=== PATIENT | male | born 1985 | race Caucasian/White ===

== ENCOUNTER 2020-09-30 15:11 | Emergency (ER) | payer OTHER, SELFPAY ==
[2020-09-30 15:15] VITALS: BP 162/84; PULSE 76; RESP 14; TEMP 36.9; O2SAT 97; BMI 29.5
--- NOTE | 2020-09-30 15:43 | ED_ITS ---
HPI - General Adult General Chief complaint: Seizure Stated complaint: seizure today, about approx 14:00 Time Seen by Provider: 09/30/20 15:20 Source: patient and family Mode of arrival: Ambulatory Limitations: no limitations History of Present Illness HPI narrative: Patient is a 35-year-old male here for evaluation of a seizure. He reports that he has had 1 seizure in the past and this was approximately 1 year ago. He was started on anti seizure medications immediately afterwards to the circumstances were he was in an isolated environment in [place]. He did follow-up with Neurology since then and had an MRI. He was told everything was fine and he has not taken any the seizure medicine since then. Has not had any issues until today when he was sitting in his car. He bent over to get something out of the glove box and the next thing that he remembers was on the ground. Unsure how long the seizure exactly lasted but it was less than 5 minutes. He did bite his tongue. There was no loss of bowel or bladder. The time of my evaluation see was generally sore but otherwise no other complaints. Related Data Allergies Allergy/AdvReac Type Severity Reaction Status Date / Time No Known Drug Allergies Allergy Verified 09/30/20 15:22 Review of Systems Constitutional Constitutional: Denies fever(s) and Denies headache(s) ENT Ears, Nose, Mouth, and Throat: Denies headache(s) Cardiovascular Cardiovascular: Reports system reviewed and no additional complaints, except as documented Respiratory Respiratory: Reports system reviewed and no additional complaints, except as documented Gastrointestinal Gastrointestinal: Reports system reviewed and no additional complaints, except as documented Musculoskeletal Musculoskeletal: Reports system reviewed and no additional complaints, except as documented Neurologic Neurologic: Denies headache(s) Psychiatric Psychiatric: Denies anxiety Hematologic/Lymphatic On Anticoagulants: No Patient History Medical History Seizure tobacco type: smokeless tobacco alcohol intake frequency: 3 or more drinks per day Substance Use Type: does not use Exam Initial Vital Signs Initial Vital Signs: Vital Signs Temperature 98.5 F 09/30/20 15:15 Pulse Rate 76 09/30/20 15:15 Respiratory Rate 14 09/30/20 15:15 Blood Pressure 162/84 H 09/30/20 15:15 Pulse Oximetry 97 09/30/20 15:15 Const General: cooperative and comfortable Limitations: mental status not altered HENMT Head: normal to inspection and normocephalic Eyes General: appearance normal, both eyes and all related structures Resp Effort & Inspection: normal respiratory effort Cardio Rate: regular rate Skin Lesions: no lesions Rashes: no rashes Neuro General: patient alert, patient awake and patient oriented x3 Cognition: normal cognition Speech: speech normal Extrem General: normal to inspection and capillary refill normal Psych Appearance: grossly normal and well kempt Scores GCS Sarah coma scale eye opening: Spontaneous [place] coma scale verbal response: Orientated [place] coma scale motor response: Obey commands [place] coma scale total score: 15 Course Orders Ordered: ED Orders 09/30/20 15:30 Basic Metabolic Panel Stat Complete Blood Count AUTO DIFF Stat Ethanol (ETOH) Stat Prolactin Stat 09/30/20 15:44 CT head/brain wo con Stat Vital Signs Vital signs: Vital Signs - 8 hr 09/30/20 15:15 Temperature 98.5 F Pulse Rate 76 Respiratory Rate 14 Blood Pressure 162/84 H Pulse Oximetry 97 Medical Decision Making Lab Data Lab results reviewed: Yes I reviewed the patient's lab results. Result diagrams: 09/30/20 15:30 09/30/20 15:30 Labs: Lab Results 09/30/20 09/30/20 Range/Units 15:30 15:30 WBC 6.8 (4.5-11.0) X10^3/uL RBC 4.44 L (4.5-5.9) X10^6/uL Hgb 15.2 (13.5-17.5) g/dL Hct 44.1 (41-53) % MCV 99.5 (80-100) fL MCH 34.2 H (26-34) PG MCHC 34.4 (30-36) % RDW 12.7 (11.6-14.8) % Plt Count 158 (150-400) X10^3/uL Neut % (Auto) 85.6 H (50-75) % Lymph % (Auto) 5.4 L (25-40) % Perkins % (Auto) 8.4 (3-14) % Eos % (Auto) 0.2 L (2-4) % Baso % (Auto) 0.4 (0-2) % Neut # (Auto) 5800 (6327-6716) /uL Lymph # (Auto) 400 L (1173-5243) /uL Perkins # (Auto) 600 (0-900) /uL Eos # (Auto) 0 (0-450) /uL Baso # (Auto) 0 (0-100) /uL Sodium 137 (137-145) mmol/L Potassium 4.1 (3.4-5.1) mmol/L Chloride 98 (98-107) mmol/L Carbon Dioxide 28 (22-32) mmol/L BUN 13 (9-20) mg/dL Creatinine 0.95 (0.66-1.25) mg/dL Estimated GFR > 60.0 (>60) mL/min BUN/Creatinine Ratio 13.7 (6-22) Glucose 125 H (70-100) mg/dL Calcium 10.8 H (8.4-10.2) mg/dL Prolactin 20.2 H (3.7-17.9) ng/mL Ethyl Alcohol < 10 ( - 10) mg/dL Imaging Data CT scan - head: Radiologist's Impression: [address] [id number] Scan ReportSigned Patient: Lalo Hanson [facility]#: [id number]: 1985Acct:[id number]/Sex: 35 / MDate of Service: 09/30/20Loc: EDAccession Number: [id number] Procedure: CT head/brain wo con Ordering Provider: Kody Bejarano D.O. PROCEDURE: CT HEAD/BRAIN WO CON INDICATIONS: 2nd seizure today TECHNIQUE: Noncontrast 4.5 mm thick angled axial sections acquired from the foramen magnum to the vertex, with coronal and sagittal reformats. For radiation dose reduction, the following was used: automated exposure control, adjustment of mA and/or kV according to patient size. COMPARISON: None. FINDINGS: Image quality: Excellent. CSF spaces: Basal cisterns are patent. No extra-axial fluid collections. Ventricles are normal in size and shape. Brain: No midline shift. No intracranial masses or hemorrhage. Kaiser-white matter interface is normal. Skull and face: Calvarium and visualized facial bones are intact, without suspicious lesions. Sinuses: Visualized sinuses and mastoids are clear. IMPRESSION: CT head without acute intracranial abnormalities. No mass or mass effect visualized. Dictated by: Matt Ann M.D. on 09/30/2020 at 16:20 Approved by: Matt Ann M.D. on 09/30/2020 at 16:21 MDM Narrative Medical decision making narrative: Labs and head CT are unremarkable. This is now his 2nd seizure in 2 years. There is no easily identifiable source for his seizure today. He does have seizure medication at home prescribed by his primary doctor which she will start taking. He also has seen a neurologist within the past year and he is going to contact their office on Friday for follow-up. He was given return precautions. He was instructed that he should not drive until he is cleared by his neurologist/primary provider. He expressed understanding and agreement. Discharge Plan Departure Patient Disposition: Home Clinical Impression: Seizure Instructions: DI for Seizure (Not Epilepsy/Seizure Disorder) Activity Restrictions/Additional Instructions: Recommend head you take the seizure medicine that was prescribed to you by your primary provider. You are not to drive until you are cleared by your primary doctor or a neurologist. Return to the emergency department for any new or worsening symptoms
[2020-09-30 16:21] LABS: Add Manual Diff / Slide Review NO; Basophils Absolute Auto 0 /uL (0-100); Basophils Percent Auto 0.4 % (0-2); Eosinophils Absolute Auto 0 /uL (0-450); Eosinophils Percent Auto 0.2 % (2-4); Hematocrit 44.1 % (41-53); Hemoglobin 15.2 g/dL (13.5-17.5); Lymphocytes Absolute Auto 400 /uL (1100-4500); Lymphocytes Percent Auto 5.4 % (25-40); Mean Corpuscular HGB Conc 34.4 % (30-36); Mean Corpuscular Hemoglobin 34.2 PG (26-34); Mean Corpuscular Volume 99.5 fL (80-100); Monocytes Absolute Auto 600 /uL (0-900); Monocytes Percent Auto 8.4 % (3-14); Neutrophils Absolute Auto 5800 /uL (1500-7000); Neutrophils Percent Auto 85.6 % (50-75); Platelet Count 158 X10^3/uL (150-400); Red Blood Cell Count 4.44 X10^6/uL (4.5-5.9); Red Cell Distribution Width 12.7 % (11.6-14.8); White Blood Cell Count 6.8 X10^3/uL (4.5-11.0)
[2020-09-30 16:28] LABS: BUN Creatinine Ratio 13.7 (6-22); Blood Urea Nitrogen 13 mg/dL (9-20); Calcium 10.8 mg/dL (8.4-10.2); Carbon Dioxide 28 mmol/L (22-32); Chloride 98 mmol/L (98-107); Estimated Glomerular Filt Rate > 60.0 mL/min (>60); Ethanol (ETOH) < 10 mg/dL; Glucose 125 mg/dL (70-100); HEMOLYSIS < 15 (0-50); Potassium 4.1 mmol/L (3.4-5.1); Sodium 137 mmol/L (137-145)
[2020-09-30 16:45] LABS: Prolactin 20.2 ng/mL (3.7-17.9)
[2020-09-30 17:11] VITALS: BP 138/89; PULSE 61; RESP 17; O2SAT 99
== END 2020-09-30 17:15 | disposition home or self-care (01) ==
PROVIDERS: Emergency Provider Emergency Medicine
DX: R56.9 Unspecified convulsions (principal)
CPT/HCPCS: 36415; 70450; 80048; 80320; 84146; 85025; 99284

== ENCOUNTER 2022-05-06 12:35 | Emergency (ER) | payer OTHER, SELFPAY ==
[2022-05-06 12:52] VITALS: BP 127/86; PULSE 94; RESP 14; TEMP 36.5; O2SAT 99; BMI 26.4
[2022-05-06] MEDS: chlordiazePOXIDE 25 MG CAPSULE 50 MG PO (14:30)
[2022-05-06 14:45] VITALS: BP 122/70; PULSE 72; RESP 14; O2SAT 99
--- NOTE | 2022-05-06 17:09 | ED_ITS ---
HPI - Alcohol <Andrade Norwood PA-C - Last Filed: 05/06/22 17:18> General Chief Complaint: Toxicology Problem Stated Complaint: etoh withdraw Time Seen by Provider: 05/06/22 13:06 Source: patient Mode of arrival: Ambulatory History of Present Illness HPI narrative: 37-year-old male presents to the ED with his mother for 3 days of alcohol withdrawal symptoms. Patient states that he is a heavy drinker, drinks through out the day, consumes hard liquor and drinks 10-20 drinks per day. Patient states that he recently decided to stopped drinking cold turkey and sober up since his is expected to deliver there baby in 3 weeks. Patient's last drink was 60 hours prior to arrival, and patient has been experiencing alcohol withdrawal symptoms including sweating, tremors, hallucinations. Patient denies feeling anxious or agitated. Patient denies having any seizures. Patient is also on Keppra due to a history of seizures from alcohol withdrawal in the past. Patient was seen at the walk-in clinic this morning, prescribed Ativan, Zofran, sent to the ED for a banana bag. Patient denies fever, chills, chest pain, shortness of breath, cough, nausea, vomiting, abdominal pain, lightheadedness, dizziness, syncope. Related Data Previous Rx's Medication Instructions Recorded chlordiazepoxide HCl 25 mg capsule See Rx Instructions .Route 05/06/22 .COMPLEX PRN alcohol withdrawal #25 caps Allergies Allergy/AdvReac Type Severity Reaction Status Date / Time No Known Drug Allergies Allergy Verified 10/02/20 08:42 Review of Systems <Andrade Norwood PA-C - Last Filed: 05/06/22 17:18> Review of Systems ROS Unobtainable: All systems reviewed & are unremarkable except as noted in HPI and below Constitutional Constitutional: Denies chills, Reports excessive sweating, Denies fatigue, Denies fever(s), Denies frequent falls, Denies lethargy and Denies weakness Eyes Eyes: Denies change in vision, Denies eye discharge, Denies irritation and Denies loss of vision ENT Ears, Nose, Mouth, and Throat: Denies change in voice, Denies dizziness, Denies neck pain, Denies sore throat and Denies throat swelling Cardiovascular Cardiovascular: Denies chest pain, Denies irregular heart rhythm, Denies lightheadedness, Denies palpitations, Denies dyspnea, Denies dyspnea on exertion and Denies orthopnea Respiratory Respiratory: Denies cough, Denies dyspnea, Denies dyspnea on exertion and Denies wheezing Gastrointestinal Gastrointestinal: Denies abdominal pain, Denies change in bowel habits, Denies diarrhea, Denies nausea and Denies vomiting Genitourinary Genitourinary: Denies hematuria, Denies flank pain, Denies urinary incontinence and Denies urinary urgency Musculoskeletal Musculoskeletal: Denies back pain, Denies muscle weakness, Denies neck pain, Denies numbness and Denies tingling Integumentary/Breasts Skin/Breast: Denies pruritus, Denies erythema, Denies rash and Denies wounds Neurologic Neurologic: Denies behavioral changes, Denies confusion, Denies dizziness, Denies frequent falls, Denies loss of vision, Denies numbness, Denies seizure- like activity, Denies tingling, Reports tremor(s) and Denies weakness Psychiatric Psychiatric: Denies anxiety, Denies behavioral changes, Denies confusion, Denies depression, Reports visual hallucinations, Denies homicidal ideation and Denies suicidal ideation Endocrine Endocrine: Reports excessive sweating, Denies fatigue, Denies flushing and Denies palpitations Hematologic/Lymphatic Hematologic/Lymphatic: Denies easy bruising Allergic/Immunologic Allergic/Immunologic: Denies urticaria, Denies throat swelling and Denies wheezing Patient History <Andrade Norwood PA-C - Last Filed: 05/06/22 17:18> Medical History Seizure Social History Smoking Status: Never smoker Smoking Status: Never smoker tobacco type: smokeless tobacco alcohol intake frequency: 3 or more drinks per day Substance Use Type: does not use Exam <Andrade Norwood PA-C - Last Filed: 05/06/22 17:18> Narrative Exam Narrative: Const General:?cooperative, healthy appearing and comfortable [facility] Head:?normal to inspection Ears:?hearing grossly normal bilaterally Nose:?external nose normal Face and sinus:?normal facial exam and sinuses nontender Mouth:?oral mucosae normal; no fasciculations Throat:?posterior oropharynx normal Eyes General:?appearance normal, both eyes and all related structures Neck Neck:?normal visual inspection and no lymphadenopathy noted Resp Effort & Inspection:?normal respiratory effort Auscultation:?clear to auscultation bilaterally Cardio Rate:?regular rate Rhythm:?regular rhythm Neuro General:?patient alert, patient awake and patient oriented x3; moderate tremors Initial Vital Signs Initial Vital Signs: Vital Signs Temperature 97.7 F 05/06/22 12:52 Pulse Rate 94 H 05/06/22 12:52 Respiratory Rate 14 05/06/22 12:52 Blood Pressure 127/86 05/06/22 12:52 Pulse Oximetry 99 05/06/22 12:52 Oxygen Delivery Method 05/06/22 12:52 <Sosa Gibson DO - Last Filed: 05/08/22 07:33> Initial Vital Signs Initial Vital Signs: Vital Signs Temperature 97.7 F 05/06/22 12:52 Pulse Rate 94 H 05/06/22 12:52 Respiratory Rate 14 05/06/22 12:52 Blood Pressure 127/86 05/06/22 12:52 Pulse Oximetry 99 05/06/22 12:52 Oxygen Delivery Method 05/06/22 12:52 Course <Andrade Norwood PA-C - Last Filed: 05/06/22 17:18> Orders Ordered: Discontinued Medications Chlordiazepoxide HCl (Chlordiazepoxide 25 Mg Capsule) 50 mg PO NOW ONE Stop: 05/06/22 14:21 Last Admin: 05/06/22 14:30 Dose: 50 mg Documented By: ODIN Vital Signs Vital signs: Vital Signs - 8 hr 05/06/22 12:52 05/06/22 14:45 Temperature 97.7 F Pulse Rate 94 H 72 Respiratory Rate 14 14 Blood Pressure 127/86 122/70 Pulse Oximetry 99 99 Oxygen Delivery Method Room Air Room Air <Sosa Gibson DO - Last Filed: 05/08/22 07:33> Orders Ordered: Discontinued Medications Chlordiazepoxide HCl (Chlordiazepoxide 25 Mg Capsule) 50 mg PO NOW ONE Stop: 05/06/22 14:21 Last Admin: 05/06/22 14:30 Dose: 50 mg Documented By: ODIN Vital Signs Vital signs: Vital Signs - 8 hr 05/06/22 12:52 05/06/22 14:45 Temperature 97.7 F Pulse Rate 94 H 72 Respiratory Rate 14 14 Blood Pressure 127/86 122/70 Pulse Oximetry 99 99 Oxygen Delivery Method Room Air Room Air MDM - Alcohol <Andrade Norwood PA-C - Last Filed: 05/06/22 17:18> MDM Narrative Medical decision making narrative: 37-year-old male presents to the ED with his mother for 3 days of alcohol withdrawal symptoms. CIWA score of 11. Counseled patient on dangers of quitting alcohol cold turkey after drinking heavily for a long period of time. Discussed symptoms including delirium, coma, . Counseled patient to start a Librium taper to help him get through the detox safely. ED return precautions were also discussed with patient. Patient verbalized understanding. Discharge Plan Departure Patient Disposition: Home Clinical Impression: Alcohol withdrawal Instructions: Alcohol Withdrawal Activity Restrictions/Additional Instructions: You were evaluated in the ED today for alcohol withdrawal. You are being prescribed a tapered 4 day dose of Librium to help you detox. It can be quite dangerous to go cold turkey from drinking alcohol, you can experience withdrawal symptoms ranging from the shakes, anxiety, agitation, delirium, coma, . Please do not mix the Librium with alcohol. Return to the ED if your symptoms worsen. Prescriptions: New chlordiazepoxide HCl 25 mg capsule See Rx Instructions .ROUTE .COMPLEX MDD 300mg PRN (Reason: alcohol withdrawal) Qty: 25 0RF Rx Instructions: Day 1: 50 mg q6 hours; day 2: 25 mg q6 hours; date 3: 25 mg q12 hours; day 4: 25 mg at night Referrals: Sophie Grant PA-C [Primary Care Provider] - Visit Report Forms: Patient Portal/API <Sosa Gibson DO - Last Filed: 05/08/22 07:33> Cosign ED Attending Tamyature Attestation: I was immediately available in the department for consultation. Documentation has been reviewed. I agree with assessment and plan.
== END 2022-05-06 14:45 | disposition home or self-care (01) ==
PROVIDERS: Emergency Provider Student in an Organized Health Care Education/Training Program; PCP Physician Assistant
DX: F10.239 Alcohol dependence with withdrawal, unspecified (principal)
CPT/HCPCS: 99283